=== PATIENT | male | born 1940 | race Two or more races ===

== ENCOUNTER → 2017-02-06 | Outpatient (CLI) | payer MEDICARE, OTHER | END | disposition home or self-care (01) | LOC: WOU 08:00 | PROVIDERS: ATTEND Podiatrist Foot & Ankle Surgery | DX: M19.072 Primary osteoarthritis, left ankle and foot (principal); E11.610 Type 2 diabetes mellitus with diabetic neuropathic arthropathy; E11.51 Type 2 diabetes mellitus with diabetic peripheral angiopathy without gangrene; R60.0 Localized edema; M20.12 Hallux valgus (acquired), left foot; I11.9 Hypertensive heart disease without heart failure; E78.5 Hyperlipidemia, unspecified; I25.118 Atherosclerotic heart disease of native coronary artery with other forms of angina pectoris; Z95.5 Presence of coronary angioplasty implant and graft; Z79.899 Other long term (current) drug therapy; Z79.02 Long term (current) use of antithrombotics/antiplatelets | CPT/HCPCS: 73630; G0463 ==

== ENCOUNTER 2017-02-07 09:47 | Outpatient (CLI) | payer MEDICARE, OTHER | END 2017-02-07 23:59 | disposition home or self-care (01) | LOC: CT 09:47 | PROVIDERS: ATTEND Podiatrist Foot & Ankle Surgery | DX: M14.672 Charcot's joint, left ankle and foot (principal); M25.872 Other specified joint disorders, left ankle and foot; M21.962 Unspecified acquired deformity of left lower leg; I70.0 Atherosclerosis of aorta | CPT/HCPCS: 73700-TC ==

== ENCOUNTER 2017-02-13 09:55 | Outpatient (CLI) | payer MEDICARE, OTHER | END 2017-02-13 23:59 | disposition home or self-care (01) | LOC: WOU 09:55 | PROVIDERS: ATTEND Podiatrist Foot & Ankle Surgery | DX: M14.672 Charcot's joint, left ankle and foot (principal); M84.675 Pathological fracture in other disease, left foot; I70.223 Atherosclerosis of native arteries of extremities with rest pain, bilateral legs; M79.89 Other specified soft tissue disorders | CPT/HCPCS: 93970-TC ==

== ENCOUNTER 2017-02-14 10:00 | Outpatient (CLI) | payer MEDICARE, OTHER | END 2017-02-14 23:59 | disposition home or self-care (01) | LOC: WOU 10:00 | PROVIDERS: ATTEND Podiatrist Foot & Ankle Surgery | DX: E11.610 Type 2 diabetes mellitus with diabetic neuropathic arthropathy (principal); M79.672 Pain in left foot; E11.51 Type 2 diabetes mellitus with diabetic peripheral angiopathy without gangrene; I25.10 Atherosclerotic heart disease of native coronary artery without angina pectoris; Z95.5 Presence of coronary angioplasty implant and graft; Z79.899 Other long term (current) drug therapy | CPT/HCPCS: G0463 ==

== ENCOUNTER 2017-09-11 10:40 | Outpatient (CLI) | payer MEDICARE, OTHER | END 2017-09-11 23:59 | disposition home or self-care (01) | LOC: WOU 10:40 | PROVIDERS: ATTEND Podiatrist Foot & Ankle Surgery | DX: M19.072 Primary osteoarthritis, left ankle and foot (principal); M89.9 Disorder of bone, unspecified; R60.0 Localized edema; B35.1 Tinea unguium; M21.40 Flat foot [pes planus] (acquired), unspecified foot; I25.10 Atherosclerotic heart disease of native coronary artery without angina pectoris; Z95.5 Presence of coronary angioplasty implant and graft; E11.9 Type 2 diabetes mellitus without complications | CPT/HCPCS: G0463 ==

== ENCOUNTER 2017-11-07 08:42 | Outpatient (CLI) | payer MEDICARE, OTHER ==
[2017-11-07] MEDS ORDERED: REGADENOSON 0.4 MG/5 ML DISP.SYRIN IVP ONE (09:30)
== END 2017-11-07 23:59 | disposition home or self-care (01) ==
LOC: NM 08:42
PROVIDERS: ATTEND Internal Medicine Cardiovascular Disease
DX: R07.9 Chest pain, unspecified (principal)
CPT/HCPCS: 78452; A9502; J2785